=== PATIENT | female | born 1955 | race Caucasian/White ===

== ENCOUNTER 2017-03-09 12:13 | Observation (INO) | payer OTHER ==
[2017-03-09 13:20] LABS: #Eosinphils 0.1 thou/uL (0.0-0.7); #Lymphocytes 1.9 thou/uL (1.20-3.40); #Monocytes 0.5 thou/uL (0.11-0.59); %Basophils 0.4 % (0.0-1.0); %Eosinophils 0.8 % (0.0-10.0); %Lymphocytes 17.9 % (21.0-51.0); %Monocytes 4.4 % (0.0-10.0); Hematocrit 48.6 % (36.0-47.0); Mean Platelet Volume 8.9 fL (7.4-10.4); Red Blood Cell (RBC) Count 5.28 mill/uL (4.20-5.40); White Blood Cell (WBC) Count 10.4 thou/uL (4.8-10.8)
[2017-03-09 13:46] LABS: ALT (SGPT) 11 U/L (8-55); AST (SGOT) 20 U/L (5-34); Alkaline Phosphatase 76 U/L (40-150); Anion Gap 12 mmol/L (10-20); BUN (Urea Nitrogen) 12 mg/dL (9.8-20.1); Bilirubin, Total 0.5 mg/dL (0.2-1.2); CK (CPK) 58 U/L (29-168); Calc. Creatinine Clearance 0 mL/min (70-130); Calcium 9.4 mg/dL (7.8-10.44); Carbon Dioxide 22 mmol/L (22-29); Chloride 104 mmol/L (98-107); Estimated GFR-MDRD 80; Globulin 3.5 g/dL (2.4-3.5); Lipase 17 U/L (8-78); Protein, Total 8.1 g/dL (6.0-8.3)
[2017-03-09 13:49] LABS: Troponin I 0.012 ng/mL (< 0.028)
--- NOTE | 2017-03-09 14:08 | RAD ---
RADIOGRAPH CHEST 1 VIEW: HISTORY: 61-year-old female with chest pain. FINDINGS: There are no air space densities, pulmonary edema, pneumothorax, or cardiomegaly. The lateral costo phrenic angles are sharp. There is no interval change compared to 02-28-15 other than the fact that t he generator for the AICD has been replaced, and there is at least one extra lead of the new AICD. IMPRESSION: 1. No acute cardiopulmonary findings. 2. Right subclavian multi-lead automatic implantable cardioverter -defibrillator. 3. Coronary artery stent and evidence of previous coronary artery bypass graft surgery are evidence for coronary atherosclerotic disease. savita POS: NICK
[2017-03-09] MEDS ORDERED: Milk Of Magnesia 30 ML UDCUP PO PRN (15:36)
[2017-03-09] MEDS ORDERED: Sodium Chloride 0.65% Nasal 44 ML BOT EA NARE PRN (15:36)
[2017-03-09] MEDS ORDERED: Ondansetron ODT 4 MG TAB PO PRN (15:36)
[2017-03-09] MEDS ORDERED: Chloraseptic Spray 180 ml Bottle PO PRN (15:36)
[2017-03-09] MEDS ORDERED: Mag-Al 1200 mg/1200 mg/30 ML UDCUP PO PRN (15:36)
[2017-03-09] MEDS ORDERED: Senokot 8.6 MG TAB PO PRN (15:36)
[2017-03-09] MEDS ORDERED: Eucerin (Mineral Oil/Petrolatum,White) 30 gm Jar TOP PRN (15:36)
[2017-03-09] MEDS ORDERED: Diabetic Tussin 200 MG/10 ML UDCUP PO PRN (15:36)
[2017-03-09] MEDS ORDERED: Ondansetron HCl/PF 4 MG/2 ML Vial IVP PRN (15:36)
[2017-03-09] MEDS ORDERED: Nitroglycerin 0.4 MG TAB (25 Tab Bottle) PO PRN (15:36)
[2017-03-09] MEDS ORDERED: Artificial Tears 18 DROP/0.9 ML EA EYE PRN (15:36)
[2017-03-09] MEDS ORDERED: Acetaminophen 325 MG TAB PO PRN (15:36)
[2017-03-09] MEDS ORDERED: Loperamide HCl 2 MG CAP PO PRN (15:36)
[2017-03-09] MEDS ORDERED: Cyclobenzaprine 10 MG TAB PO PRN (15:36)
[2017-03-09] MEDS ORDERED: Loratadine 10 MG TAB PO PRN (15:36)
[2017-03-09] MEDS ORDERED: Zolpidem Tartrate 5 MG TAB PO PRN (15:36)
[2017-03-09 16:08] VITALS: BMI 22.4
[2017-03-09 16:25] LABS: Troponin I 0.014 ng/mL (< 0.028)
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
[2017-03-09 19:24] LABS: Troponin I 0.014 ng/mL (< 0.028)
[2017-03-09] MEDS ORDERED: Atorvastatin Calcium 20 MG TAB PO SCH (21:00)
[2017-03-09] MEDS ORDERED: FLU VACC QS2017-18 36 mo. & older 0.5 ML SYRINGE IM ONE (21:00)
[2017-03-10] MEDS ORDERED: Hydrocortisone 10 mg Tablet PO SCH (08:00)
[2017-03-10] MEDS ORDERED: Aspirin 325 MG TAB PO SCH (09:00)
[2017-03-10] MEDS ORDERED: Clopidogrel Bisulfate 75 MG TAB PO SCH (09:00)
--- NOTE | 2017-03-10 10:06 | PDOC.PN ---
- Subjective Encounter Start Date: 03/10/17 Encounter Start Time: 08:15 -: old records requested/rev Patient seen and examined. No new complaints. No overnight events - Objective Resuscitation Status: Resuscitation Status FULL:Full Resuscitation MAR Reviewed: Yes Vital Signs & Weight: Vital Signs (12 hours) Temp Pulse Resp BP BP Pulse Ox 03/10/17 07:25 98.8 F 73 18 103/72 90 L 03/10/17 05:00 97.9 F 74 14 116/78 96 03/09/17 23:25 97.8 F 64 16 95/59 L 94 L Weight Weight 114 lb 14.4 oz I&O: 03/09/17 03/10/17 03/11/17 06:59 06:59 06:59 Intake Total 310 Balance 310 Result Diagrams: 03/09/17 13:02 03/09/17 13:02 EKG Reviewed by me: Yes Phys Exam - Physical Examination Constitutional: NAD HEENT: PERRLA, moist MMs, sclera anicteric Neck: no JVD, supple Respiratory: no wheezing, no rales, no rhonchi Cardiovascular: RRR, no significant murmur, no rub Gastrointestinal: soft, non-tender, no distention, positive bowel sounds Musculoskeletal: no edema, pulses present Neurological: non-focal, normal sensation, moves all 4 limbs Psychiatric: normal affect, A&O x 3 Skin: no rash, normal turgor Dx/Plan (1) Chest pain Code(s): R07.9 - CHEST PAIN, UNSPECIFIED Status: Acute (2) Gastroenteritis Code(s): K52.9 - NONINFECTIVE GASTROENTERITIS AND COLITIS, UNSPECIFIED Status : Resolved (3) Hypotension Status: Resolved (4) CAD (coronary artery disease) Code(s): I25.10 - ATHSCL HEART DISEASE OF [place] CORONARY ARTERY W/O ANG PCTRS Status: Chronic (5) PAD (peripheral artery disease) Code(s): I73.9 - PERIPHERAL VASCULAR DISEASE, UNSPECIFIED Status: Chronic (6) Chronic systolic (congestive) heart failure Code(s): I50.22 - CHRONIC SYSTOLIC (CONGESTIVE) HEART FAILURE Status: Chronic (7) Tobacco abuse Code(s): Z72.0 - TOBACCO USE Status: Chronic (8) Dyslipidemia Code(s): E78.5 - HYPERLIPIDEMIA, UNSPECIFIED Status: Chronic (9) GERD (gastroesophageal reflux disease) Code(s): K21.9 - GASTRO-ESOPHAGEAL REFLUX DISEASE WITHOUT ESOPHAGITIS Status: Chronic - Plan cont current plan of care * selected home medication reconciled. * today will do stress test * if negative, will discharge later today * medication reviewed as below * symptomatic treatment Review of Systems - Review of Systems ENT: negative: Ear Pain, Ear Discharge, Nose Pain, Nose Discharge, Nose Congestion, Mouth Pain, Mouth Swelling, Throat Pain, Throat Swelling, Other Respiratory: negative: Cough, Dry, Shortness of Breath, Hemoptysis, SOB with Excertion, Pleuritic Pain, Sputum, Wheezing Cardiovascular: negative: Chest Pain, Palpitations, Orthopnea, Paroxysmal Noc. Dyspnea, Edema, Light Headedness, Other Gastrointestinal: negative: Nausea, Vomiting, Abdominal Pain, Diarrhea, Constipation, Melena, Hematochezia, Other Genitourinary: negative: Dysuria, Frequency, Incontinence, Hematuria, Retention , Other Musculoskeletal: negative: Neck Pain, Shoulder Pain, Arm Pain, Back Pain, Hand Pain, Leg Pain, Foot Pain, Other - Medications/Allergies Allergies/Adverse Reactions: Allergies Allergy/AdvReac Type Severity Reaction Status Date / Time codeine Allergy Rash Verified 02/28/13 13:12 Medications: Current Medications Acetaminophen (Tylenol) 650 mg PO Q4H PRN PRN Reason: Headache/Fever or Pain Al Hydroxide/Mg Hydroxide (Maalox) 30 ml PO Q6H PRN PRN Reason: Heartburn or Indigestion Albuterol/Ipratropium (Duoneb) 3 ml NEB Q6H PRN PRN Reason: SOB &/or Wheezing Artificial Tears (Tears Naturale) 0 drop EA EYE PRN PRN PRN Reason: Dry Eyes Aspirin (Aspirin) 325 mg PO DAILY [facility] Atorvastatin Calcium (Lipitor) 20 mg PO HS [facility] Last Admin: 03/09/17 19:59 Dose: 20 mg Citalopram Hydrobromide (Celexa) 40 mg PO DAILY [facility] Clopidogrel Bisulfate (Plavix) 75 mg PO QAM [facility] Cyclobenzaprine HCl (Flexeril) 10 mg PO TIDPRN PRN PRN Reason: Muscle Spasm Guaifenesin (Robitussin Sf) 200 mg PO Q4H PRN PRN Reason: Cough Hydralazine HCl (Apresoline) 10 mg SLOW IVP Q4H PRN PRN Reason: Systolic BP > 180 Hydrocortisone (Cortef) 10 mg PO BID-WM SILVIO Ipratropium [place] (Atrovent Hfa) 1 puff INH QID-RT SILVIO Last Admin: 03/10/17 10:06 Dose: Not Given Loperamide HCl (Imodium) 2 mg PO PRN PRN PRN Reason: Diarrhea/Loose Stools Loratadine (Claritin) 10 mg PO DAILYPRN PRN PRN Reason: Sinus Symptoms Magnesium Hydroxide (Milk Of Magnesium) 30 ml PO DAILYPRN PRN PRN Reason: Constipation Mineral Oil/White Petrolatum (Eucerin Cream) 0 gm TOP BIDPRN PRN PRN Reason: Dry Skin Nitroglycerin (Nitrostat) 0.4 mg PO Q5MIN PRN PRN Reason: Chest Pain Ondansetron HCl (Zofran Odt) 4 mg PO Q6H PRN PRN Reason: Nausea/Vomiting Last Admin: 03/09/17 17:24 Dose: 4 mg Ondansetron HCl (Zofran) 4 mg IVP Q6H PRN PRN Reason: Nausea/Vomiting Pantoprazole Sodium (Protonix) 40 mg PO DAILY [facility] Phenol (Chloraseptic [place] 180 Ml Bot) 0 ml PO PRN PRN PRN Reason: Sore Throat Senna (Senokot) 2 tab PO HSPRN PRN PRN Reason: Constipation Sodium Chloride ([place] Nasal [place] 0.65%) 0 ml EA NARE QIDPRN PRN PRN Reason: Nasal Congestion Zolpidem Tartrate (Ambien) 5 mg PO HSPRN PRN PRN Reason: Insomnia
[2017-03-10] MEDS ORDERED: Ipratropium Oral Inhaler (200 INHALATIONS) INH SCH (11:00)
[2017-03-10] MEDS ORDERED: Regadenoson 0.4 MG/5 ML SYRINGE ONE (12:00)
[2017-03-10 12:39] VITALS: BP 105/72; TEMP 98.2
--- NOTE | 2017-03-10 13:06 | NM ---
CARDIAC SPECT: CLINICAL HISTORY: 61-year-old female with chest pain, coronary artery disease, [place], stent placement, CABG, CHF, COPD, p eripheral vascular disease, hypertension, and dyslipidemia. Smoker. TECHNIQUE: A myocardial perfusion scan was performed using the single isotope one day protocol with technetium- 99m sestamibi. 10 mCi were injected intravenously for the rest exam followed by 33 mCi for the stres s exam. Pharmacologic stress with Lexiscan was monitored and interpreted by Ge Mendez NP. FINDINGS: There is a large fixed defect in the anterior wall and apex. No reversible defects are identified. GATED SPECT LVEF: 25%. WALL MOTION EXAM: Global hypokinesis, most severe in the anterior wall. IMPRESSION: 1. No evidence of reversible ischemia. 2. Large anterior wall and apical scar. POS: NICK
--- NOTE | 2017-03-10 13:52 | DIS ---
DATE OF ADMISSION: 03/09/2017 DATE OF DISCHARGE: 03/10/2017 PRIMARY CARE PHYSICIAN: [facility] call admission. DISCHARGE DISPOSITION: Home. PRIMARY DISCHARGE DIAGNOSES: 1. Diarrhea, resolved. 2. Chest pain, ruled out acute coronary syndrome. 3. Hypotension, resolved. SECONDARY DISCHARGE DIAGNOSES: Tobacco abuse disorder, peripheral arterial disease, gastroesophagea l reflux disease, chronic systolic heart failure with automated implantable cardioverter-defibrillat or, dyslipidemia, coronary artery disease. PRIMARY PROCEDURE/OPERATION: None. RADIOLOGICAL INVESTIGATION: Chest x-ray, normal stress test, negative for any reversible ischemia, but it did show EF 25% and scar on the anterior wall. SIGNIFICANT DATA: CBC normal. BMP normal. LFTs normal. Cardiac enzymes negative. LDL 130. DISCHARGE MEDICATIONS: Patient is advised to continue all her previous home medications. We are no t making any change in her home medications. The patient is on following medications: Proventil HF A 1 puff inhalation q.i.d., Fosamax 70 mg every weekly, aspirin 81 mg p.o. daily, Celexa 40 mg p.o. daily, Plavix 75 mg p.o. daily, Flexeril 10 mg t.i.d., Nexium 40 mg p.o. daily, Lasix 20 mg p.o. b.i .d., hydrocortisone 10 mg b.i.d., Atrovent HFA 1 puff q.i.d., Imdur 30 mg b.i.d., lisinopril 2.5 mg p.o. daily, metoprolol 12.5 mg p.o. b.i.d., nitroglycerin 0.4 mg sublingual p.r.n., Zocor 40 mg p.o. at bedtime, Aldactone 12.5 mg p.o. daily. CONTRAINDICATIONS: None. CODE STATUS: FULL CODE. INPATIENT CONSULTANTS: None. ALLERGIES: CODEINE. DISCHARGE PLAN: Post hospital, the patient will follow up with primary care physician. HOSPITAL COURSE: A 61-year-old female, who had an episode of diarrhea and vomiting at home, and sub sequently, she was having hypotension and she was feeling diaphoresis and she felt chest pain and th at is why she came to emergency room. In the emergency room, we gave her IV fluid. We did serial c ardiac enzymes and we ruled out acute coronary syndrome. Her hypotension resolved. She did not hav e any further diarrhea while in hospital. We did stress test and that came back negative for any re versible ischemia. She does have cardiomyopathy and scar on the anterior wall and she already has A ICD. She is already on optimum medical treatment. At this point, as blood pressure improved, we advised her to continue all her previous medication an d follow up with primary loan inspector. Overall, patient is medically stable for discharge today. The patient is seen and examined at [facility] today. Please see my progress note from today for further details.
== END 2017-03-10 14:06 | disposition home or self-care (01) ==
LOC: ERS 12:13 → 2SW 14:00
PROVIDERS: ADMIT Internal Medicine; ATTEND Internal Medicine
DX: R07.89 Other chest pain (principal); R06.00 Dyspnea, unspecified; I95.9 Hypotension, unspecified; I11.0 Hypertensive heart disease with heart failure; I50.22 Chronic systolic (congestive) heart failure; I25.10 Atherosclerotic heart disease of native coronary artery without angina pectoris; I42.9 Cardiomyopathy, unspecified; I25.2 Old myocardial infarction; I73.9 Peripheral vascular disease, unspecified; E78.5 Hyperlipidemia, unspecified; K21.9 Gastro-esophageal reflux disease without esophagitis; F17.219 Nicotine dependence, cigarettes, with unspecified nicotine-induced disorders; J44.9 Chronic obstructive pulmonary disease, unspecified; Z88.5 Allergy status to narcotic agent; Z79.82 Long term (current) use of aspirin; Z79.899 Other long term (current) drug therapy; Z98.51 Tubal ligation status; Z90.49 Acquired absence of other specified parts of digestive tract; Z90.710 Acquired absence of both cervix and uterus; Z95.810 Presence of automatic (implantable) cardiac defibrillator; Z95.1 Presence of aortocoronary bypass graft; Z95.5 Presence of coronary angioplasty implant and graft; Z82.49 Family history of ischemic heart disease and other diseases of the circulatory system
CPT/HCPCS: 36415; 71010; 78452; 80053; 80061; 82550; 82553; 83690; 83880; 84484; 85025; 90471; 90682; 93005; 93017; 96360; A9500; G0008; G0378; J2785; Q0162; Q2036

== ENCOUNTER 2021-02-12 19:38 | Inpatient (IN) | payer OTHER ==
[2021-02-12] MEDS ORDERED: Naloxone HCl 0.4 mg/ml Vial ONE (19:48)
[2021-02-12] MEDS ORDERED: Cefepime 2 GM VIAL ONE (20:07)
[2021-02-12 20:19] LABS: #Basophils 0.1 thou/uL (0.0-0.2); #Eosinphils 0.2 thou/uL (0.0-0.7); #Lymphocytes 1.7 thou/uL (1.20-3.40); #Monocytes 0.7 thou/uL (0.11-0.59); #Neutrophils 8.5 thou/uL (1.40-6.50); %Basophils 0.5 % (0.0-1.0); %Eosinophils 1.4 % (0.0-10.0); %Monocytes 6.4 % (0.0-10.0); %Neutrophils 76.8 % (42.0-75.0); Hemoglobin 11.5 g/dL (12.0-16.0); Mean Corpuscular HGB CONC 33.5 g/dL (32.0-36.0); Mean Corpuscular Hemoglobin 29.1 pg (27.0-31.0); Mean Platelet Volume 7.5 fL (7.4-10.4); Platelet Count 283 thou/uL (130-400); RBC Distribution Width 14.7 % (11.5-14.5); Red Blood Cell (RBC) Count 3.96 mill/uL (4.20-5.40)
[2021-02-12 20:31] LABS: Bilirubin Negative (Negative); Blood, Urine Negative (Negative); Clarity Clear (Clear); Glucose, Urine (Dipstick) Normal (Negative); Ketone, Urine Negative (Negative); Leukocyte Negative Leu/uL (Negative); Nitrite Negative (Negative); Protein, Urine (Dipstick) Negative (Neg-Trace); Specific Gravity, Urine 1.008 (1.002-1.036); Urobilinogen Normal mg/dL (Less than 2)
[2021-02-12 20:40] LABS: Amphetamine Detected (NotDetected); Barbiturates Screen Not Detected (NotDetected); Benzodiazepine Screen Not Detected (NotDetected); Cocaine Metabolite Screen Not Detected (NotDetected); Methadone Not Detected (NotDetected); Methamphetamine Detected (NotDetected); Opiate Screen Not Detected (NotDetected); Oxycodone Screen Not Detected (NotDetected); Phencyclidine (PCP) Not Detected (NotDetected); THC/Cannabinoid Screen Not Detected (NotDetected); Tricyclic Screen Not Detected (NotDetected)
[2021-02-12 20:42] LABS: ALT (SGPT) 9 U/L (8-55); AST (SGOT) 16 U/L (5-34); Acetaminophen Less than 6.0 mcg/mL (10.0-30.0); Albumin 3.6 g/dL (3.4-4.8); Alcohol Less than 10 mg/dL (Less than 10); Alkaline Phosphatase 77 U/L (40-110); Anion Gap 12 mmol/L (10-20); BUN (Urea Nitrogen) 19 mg/dL (9.8-20.1); Bilirubin, Total 0.2 mg/dL (0.2-1.2); Calc. Creatinine Clearance 0 mL/min (70-130); Calcium 9.1 mg/dL (7.8-10.44); Carbon Dioxide 23 mmol/L (23-31); Chloride 104 mmol/L (98-107); Globulin 2.7 g/dL (2.4-3.5); Glucose 125 mg/dL (80-115); Potassium 4.1 mmol/L (3.5-5.1); Protein, Total 6.3 g/dL (5.8-8.1); Salicylate Less than 8.0 mg/dL (15.0-30.0); Sodium 135 mmol/L (136-145)
[2021-02-12] MEDS ORDERED: Magnesium 2 GM/50 ML BAG (IN WATER) ONE (20:57)
[2021-02-12] MEDS ORDERED: Norepinephrine 8 MG/0.9% NS 250 ML ONE (21:42)
[2021-02-12] MEDS ORDERED: Vancomycin 1 GM/200 ML BAG ONE (22:20)
[2021-02-12] MEDS ORDERED: Dexamethasone 10 MG/ML VIAL ONE (22:23)
[2021-02-13] MEDS ORDERED: Acetaminophen 650 MG Suppository PR PRN (00:09)
[2021-02-13] MEDS ORDERED: Acetaminophen 325 MG TAB PO PRN (00:09)
[2021-02-13] MEDS ORDERED: Ondansetron ODT 4 MG TAB PO PRN (00:09)
[2021-02-13] MEDS ORDERED: Ondansetron PF 4 MG/2 ML Vial IVP PRN (00:09)
[2021-02-13 02:57] LABS: SARS-CoV-2 NAA Rapid Test Not Detected (NotDetected)
[2021-02-13] MEDS: Cefepime 2 GM in Sodium Chloride 0.9% 100 ML IVPB SCH ×3 (04:15→21:00)
[2021-02-13] MEDS ORDERED: Cefepime 2 GM VIAL ONE (04:28)
[2021-02-13 04:47] LABS: #Lymphocytes 0.9 thou/uL (1.20-3.40); #Monocytes 0.1 thou/uL (0.11-0.59); #Neutrophils 8.2 thou/uL (1.40-6.50); %Basophils 0.1 % (0.0-1.0); %Eosinophils 0.3 % (0.0-10.0); %Lymphocytes 9.6 % (21.0-51.0); %Neutrophils 88.9 % (42.0-75.0); Hemoglobin 11.4 g/dL (12.0-16.0); Mean Corpuscular HGB CONC 32.7 g/dL (32.0-36.0); Mean Corpuscular Hemoglobin 28.6 pg (27.0-31.0); Mean Corpuscular Volume 87.4 fL (78.0-98.0); Platelet Count 280 thou/uL (130-400); RBC Distribution Width 14.3 % (11.5-14.5); Red Blood Cell (RBC) Count 3.99 mill/uL (4.20-5.40); White Blood Cell (WBC) Count 9.2 thou/uL (4.8-10.8)
[2021-02-13 05:00] LABS: Anion Gap 12 mmol/L (10-20); BUN (Urea Nitrogen) 13 mg/dL (9.8-20.1); Calc. Creatinine Clearance 0 mL/min (70-130); Calcium 8.3 mg/dL (7.8-10.44); Carbon Dioxide 22 mmol/L (23-31); Chloride 109 mmol/L (98-107); Glucose 155 mg/dL (80-115); Potassium 4.2 mmol/L (3.5-5.1); Sodium 139 mmol/L (136-145)
[2021-02-13] MEDS ORDERED: Enoxaparin Sodium 40 MG/0.4 ML SYRINGE ONE (09:55)
[2021-02-13] MEDS: Enoxaparin Sodium 40 MG/0.4 ML SYRINGE SC SCH (09:57)
[2021-02-13 17:27] VITALS: BMI 21.4
[2021-02-13] MEDS: Sodium Chloride 0.9% 1,000 ML IV SCH ×2 (17:33→21:20)
[2021-02-13] MEDS: Vancomycin HCl 1.5 GM in Sodium Chloride 0.9% 250 ML 300 ML IVPB SCH ×2 (17:33→21:19)
[2021-02-14 07:57] VITALS: BP 113/77; TEMP 98.1
[2021-02-14] MEDS: Vancomycin HCl 1.5 GM in Sodium Chloride 0.9% 250 ML 300 ML IVPB SCH (09:43)
[2021-02-14] MEDS: Enoxaparin Sodium 40 MG/0.4 ML SYRINGE SC SCH (09:43)
== END 2021-02-14 15:11 | disposition home or self-care (01) | DRG 312 ==
LOC: ERS 19:38 → ERHOLD 22:29 → T4-B 02-13 07:00
PROVIDERS: ADMIT Student in an Organized Health Care Education/Training Program; ATTEND Family Medicine
PROC: 02HV33Z Insertion of Infusion Device into Superior Vena Cava, Percutaneous Approach (ICD-10-PCS; principal; 2021-02-12)
DX: I95.2 Hypotension due to drugs (principal); G92 Toxic encephalopathy; L03.90 Cellulitis, unspecified; E87.1 Hypo-osmolality and hyponatremia; I50.22 Chronic systolic (congestive) heart failure; F15.10 Other stimulant abuse, uncomplicated; E78.5 Hyperlipidemia, unspecified; Z20.822 Contact with and (suspected) exposure to COVID-19; F17.210 Nicotine dependence, cigarettes, uncomplicated; F19.10 Other psychoactive substance abuse, uncomplicated; I25.10 Atherosclerotic heart disease of native coronary artery without angina pectoris; F41.9 Anxiety disorder, unspecified; T43.695A Adverse effect of other psychostimulants, initial encounter; F32.9 Major depressive disorder, single episode, unspecified; I25.5 Ischemic cardiomyopathy; K21.9 Gastro-esophageal reflux disease without esophagitis; I73.9 Peripheral vascular disease, unspecified; I11.0 Hypertensive heart disease with heart failure; Z88.5 Allergy status to narcotic agent; Z79.51 Long term (current) use of inhaled steroids; Z79.899 Other long term (current) drug therapy; Z79.82 Long term (current) use of aspirin; I25.2 Old myocardial infarction; Z95.5 Presence of coronary angioplasty implant and graft; Z90.49 Acquired absence of other specified parts of digestive tract; Z90.710 Acquired absence of both cervix and uterus; Z95.1 Presence of aortocoronary bypass graft; Z95.810 Presence of automatic (implantable) cardiac defibrillator
CPT/HCPCS: 36415; 36556; 51702; 70450; 71045; 80048; 80053; 80306; 80307; 81003; 82533; 82550; 83605; 83690; 83880; 84436; 84443; 84484; 85025; 87040; 87086; 93005; 93306; 96365; 96366; 96368; 96375; J0692; J1100; J1650; J2310; J3370; J3475; J3490; J7050; U0002

== ENCOUNTER 2022-04-14 19:55 | Emergency (ER) | payer OTHER ==
[~2022-04-14 19:55] MED LIST: Iopamidol-370 76% 500 ML 1 ML ONE
[2022-04-14 20:43] LABS: #Basophils 0.1 thou/uL (0.0-0.2); #Eosinphils 0.1 thou/uL (0.0-0.7); #Lymphocytes 1.6 thou/uL (1.20-3.40); #Monocytes 0.6 thou/uL (0.11-0.59); #Neutrophils 4.9 thou/uL (1.40-6.50); %Basophils 1.1 % (0.0-1.0); %Eosinophils 1.1 % (0.0-10.0); %Lymphocytes 21.6 % (21.0-51.0); %Monocytes 8.4 % (0.0-10.0); %Neutrophils 67.7 % (42.0-75.0); Hemoglobin 10.5 g/dL (12.0-16.0); Mean Corpuscular Hemoglobin 24.4 pg (27.0-31.0); Mean Corpuscular Volume 78.8 fl (78.0-98.0); Mean Platelet Volume 8.5 fL (7.4-10.4); Platelet Count 281 10x3/uL (130-400); White Blood Cell (WBC) Count 7.2 10x3/uL (4.8-10.8)
[2022-04-14 20:44] LABS: Actual Bicarbonate (HCO3v) 23 mEq/L (22-28); Base Excess 0.6 mEq/L (-2.0 to +3.0); Calcium, Ionized (venous) 0.96 mmol/L (1.16-1.32); Chloride (VBG) 100 mmol/L (98-106); Hemoglobin (Hb) 11.9 g/dL (11.7-16.1); Potassium (VBG) 4.07 mmol/L (3.70-5.30); Sodium 130.9 mmol/L (133-146)
[2022-04-14] MEDS ORDERED: Rocuronium Bromide 10 MG/ML (10ML VIAL) ONE (20:49)
[2022-04-14 20:57] LABS: ALT (SGPT) 18 U/L (8-55); AST (SGOT) 27 U/L (5-34); Albumin 3.5 g/dL (3.4-4.8); Alkaline Phosphatase 115 U/L (40-110); Anion Gap 13 mmol/L (10-20); BUN (Urea Nitrogen) 25 mg/dL (9.8-20.1); Bilirubin, Total 0.9 mg/dL (0.2-1.2); Calc. Creatinine Clearance 0 mL/min (70-130); Calcium 8.4 mg/dL (7.8-10.44); Carbon Dioxide 24 mmol/L (23-31); Chloride 100 mmol/L (98-107); Estimated GFR 81; Globulin 2.8 g/dL (2.4-3.5); Glucose 84 mg/dL (80-115); Protein, Total 6.3 g/dL (5.8-8.1); Sodium 133 mmol/L (136-145)
[2022-04-14 20:57] LABS: INR-International Normal Ratio 1.3; PTT 30.5 sec (22.9-36.1); Prothrombin Time 16.8 sec (12.0-14.7)
[2022-04-14] MEDS ORDERED: FENTANYL 50 MCG/ML 1 ML VIAL ONE (21:10)
[2022-04-14] MEDS ORDERED: Aspirin 300 MG Suppository ONE (21:11)
[2022-04-14] MEDS ORDERED: Fentanyl CADD 100 ML IV SCH (21:15)
[2022-04-14] MEDS ORDERED: fentaNYL PF 100 MCG/2 ML SYRINGE ONE (21:15)
[2022-04-14] MEDS ORDERED: levETIRAcetam 500 MG/5 ML VIAL ONE (21:27)
[2022-04-14] MEDS ORDERED: Heparin 10,000 UNITS/ 10 ML VIAL ONE (21:31)
[2022-04-14] MEDS ORDERED: Lidocaine 1% (PF) 30 ML VIAL ONE (21:31)
[2022-04-14 22:08] LABS: Actual Bicarbonate (HCO3a) 23.5 mEq/L (22-28); Analyzer IN Cardio ER; Base Excess (BEa) -0.3 mEq/L (-2.0 to +3.0); CO2 Tension 35.1 mmHg (35.0-45.0); Calcium, Ionized (arterial) 1.07 mmol/L (1.12-1.30); Carboxyhemoglobin (COHb) 0.5 gm% (0.0-3.0); Hemoglobin (Hb) 11.3 g/dL (12.0-16.0); O2 Tension (PaO2), arterial 144.2 mmHg (> 80.0); Potassium - ABG Lab 3.75 mmol/L (3.70-5.30); pH, Arterial 7.44 (7.35-7.45)
[2022-04-14 22:33] LABS: Bacteria/HPF None Seen HPF (None Seen); Bilirubin Negative (Negative); Blood, Urine Negative (Negative); Clarity Clear (Clear); Glucose, Urine (Dipstick) Normal (Negative); Ketone, Urine Negative (Negative); Leukocyte Negative Leu/uL (Negative); Nitrite Negative (Negative); Protein, Urine (Dipstick) 30 mg/dL (Neg-Trace); RBC/HPF 0-3 HPF (0-3); Squamous Epithelial 0-3 HPF (0-3); WBC/HPF 0-3 HPF (0-3); pH, Urine 5.5 (5.0-9.0)
[2022-04-14 22:57] LABS: SARS-CoV-2 NAA Rapid Test Not Detected (NotDetected)
[2022-04-14 23:01] LABS: ALV-art Gradient 97.125 mmHg (0-20); Puncture Site LRA
== END 2022-04-14 23:58 | disposition short-term general hospital (02) ==
LOC: ERS 19:55
DX: I63.9 Cerebral infarction, unspecified (principal); J96.91 Respiratory failure, unspecified with hypoxia; Z20.822 Contact with and (suspected) exposure to COVID-19; Z79.899 Other long term (current) drug therapy
CPT/HCPCS: 31500; 36415; 36600; 51702; 70450; 70496; 70498; 71045; 80053; 81003; 81015; 82805; 84484; 85025; 85610; 85730; 93005; 94002; 94760; 96365; 96366; 99292; J1644; J1953; J2001; J3010; Q9967; U0002